=== PATIENT | female | born 1965 | race Two or more races ===

== ENCOUNTER 2021-09-09 08:24 | Outpatient (REF) | payer MEDICARE, MEDICAID, SELFPAY ==
--- NOTE | ~2021-09-09 | XR_ITS ---
EXAMINATION: XR HAND, RIGHT CLINICAL INFORMATION: Pain COMPARISON: None TECHNIQUE: PA, lateral, and oblique views of the right hand. FINDINGS: There is mild loss of PIP and DIP joint space slightly greater at the DIP joint 3rd digit with periarticular spurring. No bony erosive changes. No fracture or dislocation. The MCP joints and the intercarpal joints are normal. XR/XR hand RT min 3V IMPRESSION: Mild degenerative changes PIP and DIP joints slightly worse 3rd digit PIP joint. No visible acute fracture or dislocation.
== END 2021-09-09 08:25 | disposition home or self-care (01) ==
LOC: HO.HOSX 08:24
PROVIDERS: Visit Provider Orthopaedic Surgery
DX: M15.1 Heberden's nodes (with arthropathy) (principal)
CPT/HCPCS: 73130; 99202

== ENCOUNTER → 2021-10-28 14:14 | Outpatient (BNVA) | payer MEDICARE, MEDICAID, SELFPAY | PROVIDERS: PCP Family Medicine; Visit Provider Orthopaedic Surgery | DX: M15.1 Heberden's nodes (with arthropathy) (principal) | CPT/HCPCS: 99212 ==

== ENCOUNTER 2021-11-02 05:59 | Day surgery (SDC) | payer MEDICARE, MEDICAID, SELFPAY ==
[2021-11-02] VITALS (7 sets, daily range): BP systolic 127–156; BP diastolic 76–93; PULSE 64–100; RESP 15–18; TEMP 36.1–36.9; O2SAT 95–98; BMI 37.4
--- NOTE | ~2021-11-02 | FL_ITS ---
EXAMINATION: XR FLUOROSCOPY WITH IMAGES CLINICAL INFORMATION: Middle finger DIP joint arthrodesis. COMPARISON: 09/09/2021. TECHNIQUE: Fluoroscopy performed by Dr. Mackenzie Savage. Fluoroscopy time: 24.32 seconds. Cumulative Dose: 0.4666 mGy. DAP: 0.0282 Gy-cm2. Images: 4. FINDINGS: Images demonstrate screw placement across the third distal interphalangeal joint. FL/FL guidance in OR IMPRESSION: Intraoperative fluoroscopy for orthopedic procedure.
[2021-11-02] MEDS: Lactated Ringers 1,000 ML 100 ML IVCONT (06:42)
--- NOTE | 2021-11-02 07:22 | HO.ANESPROP2 ---
HPI - Anesthesia Eval Consult details Narrative: 56 F for right middle finger D IP? 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 (Acute) Past Medical History Medical History Benign neoplasm of head Migraine Rheumatoid arthritis Seasonal allergic reaction Functional capacity: uses cane/walker Family History Family history of problems with anesthesia: No Surgical History History of Problems with Anesthesia: No Social History Social History Patient Tobacco Use Status: Former Tobacco user Quit Date: 2015 Current occupational status: disabled Current occupation: left hand Meds Allergies Allergy/AdvReac Type Severity Reaction Status Date / Time divalproex sodium Allergy Rash Verified 11/02/21 07:34 [From Depakote] ketorolac [From Toradol] Allergy Rash Verified 11/02/21 07:34 Active Medications: Current Medications Lactated Ringer's (Lr) 1,000 mls @ 100 mls/hr IVCONT .Q10H LAUREN Last Admin: 11/02/21 06:42 Dose: 100 mls/hr Home Medications Medication Instructions Recorded Confirmed Last Taken Type albuterol sulfate 90 mcg/actuation 2 puff inhalation Q4-6H PRN 09/09/21 10/27/21 Unknown History aerosol inhaler (Ventolin HFA) Wheezing estradiol 1 mg tablet 1 mg PO DAILY 09/09/21 10/27/21 Unknown History fluticasone propionate 50 spray intranasal 09/09/21 Unknown History mcg/actuation nasal spray,suspension hydroxychloroquine 200 mg tablet 200 mg PO BID 09/09/21 10/27/21 Unknown History mirtazapine 15 mg tablet 15 mg PO BEDTIME 09/09/21 10/27/21 Unknown History omeprazole 40 mg capsule,delayed 40 mg PO BID 09/09/21 10/27/21 Unknown History release pregabalin 200 mg capsule 200 mg PO TID 09/09/21 10/27/21 Unknown History venlafaxine 75 mg capsule,extended 75 mg PO QAM 09/09/21 10/27/21 Unknown History release 24 hr oxycodone 5 mg tablet 1 tab PO Q6H PRN moderate pain 11/02/21 11/02/21 11/02/21 History Exam Exam Date and Time: November 02, 2021721 Height,Weight and Vital Signs: Height 5 ft 1 in Weight 89.811 kg Last Vital Signs Temp 97.2 F 11/02/21 06:23 Pulse 64 11/02/21 06:23 Resp 16 11/02/21 06:23 BP 156/76 H 11/02/21 06:23 Pulse Ox 97 11/02/21 06:23 O2 Del Method 11/02/21 06:23 Airway Mallampati Class: III TM Dist: >3cm Neck ROM: Full Loose/Missing/Broken Teeth: Yes (Chipped teeth ) Heart: S1,S2 Lungs: b/l breath sounds Assessment and Plan Assessment Anesthesia Assessment: Anesthesia Plan Discussed and Chart Reviewed Final Anesthetic Review Family History of Problems with Anesthesia: No History of Problems with Anesthesia: No NPO: Yes ASA Class: III Final Preanesthetic Review: Meds/Allgs Chart Reviewed, Consent Obtained/Reviewed and Anes Risks/Benef Reviewed Patient Risk: Intermediate Procedure Risk: Intermediate Anesthetic Plan Anesthetic Plan: GA Disposition: Standard PACU
--- NOTE | 2021-11-02 09:51 | MHC.SHP ---
Pre-Procedural Eval Section A Date of Service: 11/02/21 The patient is an INPATIENT: No Changes since office visit: No Cold of Flu in the past 2 weeks, No New Medical Problems, No Changes in Medication and No Patient answered all questions The History & Physical has been completed within 30 days and I have reviewed it.: Yes Section B Chief Complaint: osteoarthritis Allergies: Allergies Allergy/AdvReac Type Severity Reaction Status Date / Time divalproex sodium Allergy Rash Verified 11/02/21 07:34 [From Depakote] ketorolac [From Toradol] Allergy Rash Verified 11/02/21 07:34 Plan I have reviewed the history and physical and performed a pertinent physical examination on my patient. No changes have occurred unless specified.
--- NOTE | 2021-11-02 09:56 | P.OP_ITS ---
Operative Note Operative Note Date of Service: 11/02/21 Narrative: Operative Note Narrative: Preop diagnosis: Right middle finger D IP joint osteoarthritis Postop diagnosis: Same Procedure: right middle finger D IP joint arthrodesis Surgeon: Mackenzie Savage MD Anesthesia: General Anesthesia Findings: osteoarthritis Implants: AcuTrak 2 mini 26 mm headless compression screw Tourniquet time: 55 minutes EBL: 5.0 ml Specimen: none Drains: None Complications: None Disposition: Brought to the recovery room in stable condition Plan: Follow-up in 10-14 days for wound check, suture removal, radiographs and finger splinting. Encourage MCP and PIP joint range of motion no heavy activity with this finger for least 4 weeks or until bony healing Indications: The patient is 56 years old with right middle finger D IP joint osteoarthritis that has been unresponsive to non operative measures. The risks and benefits of operative treatment, including but not limited to risk of damage to blood vessels, nerves, tendons, infection, recurrence, persistent pain or numbness, incomplete resolution of preoperative symptoms, or need for further surgery were discussed with the patient and they wished to proceed with surgery. Procedure: Once consent was obtained patient was brought back to the operating suite and placed in the operating table in a supine position. Perioperative antibiotics and anesthesia was administered by the anesthesia team. A tourniquet was applied to the proximal aspect of the right upper extremity and the limb was prepped and draped in a standard surgical fashion. The limb was elevated exsanguinated with Esmarch bandage and the tourniquet inflated to 250 mm of mercury for a total tourniquet time of 55 minutes. The mini C-arm was used during the case to facilitate placement of our guidewire, arthrodesis alignment and position of our headless compression screw. An S shaped incision was made over the dorsal aspect of the right middle finger D IP joint. The incision was made through the skin to the subcutaneous tissues using a 15. Blade. I dissected down to the level of the extensor tendon and the extensor tendon was cut transversely using a 15. Blade directly over the D IP joint. This then revealed our joint. A rongeur was used to remove some of the periarticular osteophytes and also to remove any remaining articular cartilage from the D IP joint. Echo here at was also used to facilitate removal of articular cartilage. I then used a 0.035 K-wire to fenestrate the subchondral bone on both the proximal and distal joint surfaces to facilitate bony healing across our arthrodesis site. A small longitudinal incision was made directly over the tip of the finger. I dissected down to the tip of the distal phalanx using tenotomy scissors. The K-wire from the AcuTrak 2 mini head less compression screw set was then advanced retrograde through the tip of the distal phalanx proximally across the D IP joint and into the middle phalanx. Placement of this guidewire was visualized on orthogonal fluoroscopic images. Once satisfied with its placement the length of the needed screw was measured. I then used the long narrow cannulated Reamer over the placed guidewire to ream across the D IP joint to the appropriate depth. The short fat cannulated Reamer was then used to open up the cortex at the tip of the finger. A 26 mm AcuTrak 2 mini headless compression screw was then advanced retrograde over the guidewire across the D IP joint into the appropriate position. We achieved excellent compression at the arthrodesis site. The guidewire was removed and final radiographs were obtained. At this point the tourniquet was deflated and hemostasis obtained with a brief period of local pressure and bipolar electrocautery. The wound was copiously irrigated with normal saline. The skin edges were reapproximated with 5-0 nylon suture. A Digital block was performed using some 0.5% plain ropivacaine for postop pain control and a sterile dressing was applied. a volar splint extending from the fingertips of the middle ring and small fingers to the volar forearm was placed. The patient appears to have tolerated the procedure well and with no complications. All digits were well vascularized conclusion of the case.
== END 2021-11-02 11:10 | disposition home or self-care (01) ==
PROVIDERS: PCP Family Medicine; Visit Provider Orthopaedic Surgery
PROC: (CPT 26860; principal; 2021-11-02 07:30)
DX: M15.1 Heberden's nodes (with arthropathy) (principal)
CPT/HCPCS: 26860; C1713; J0131; J0171; J0690; J1100; J1170; J2250; J2370; J2405; J2795; J3010

== ENCOUNTER 2021-11-16 15:49 | Outpatient (REF) | payer MEDICARE, MEDICAID, SELFPAY ==
--- NOTE | ~2021-11-16 | XR_ITS ---
EXAMINATION: XR HAND, RIGHT CLINICAL INFORMATION: Pain COMPARISON: Hand radiographs 09/09/2021 TECHNIQUE: PA, lateral, and oblique views of the right hand. FINDINGS: Postsurgical changes of fusion of the third distal interphalangeal joint with a single surgical screw. There is new erosion of the tuft of the third distal phalanx at the superior margin of the screw. Similar mild degenerative changes of the remaining distal interphalangeal joints. No acute fracture or dislocation. Soft tissues are unremarkable. XR/XR hand RT min 3V IMPRESSION: Postsurgical changes of fusion of the third distal interphalangeal joint with a single surgical screw. There is new erosion of the tuft of the third distal phalanx at the superior margin of the screw. Similar mild degenerative changes of the remaining distal interphalangeal joints.
== END 2021-11-16 15:50 | disposition home or self-care (01) ==
LOC: HO.HOSX 15:49
PROVIDERS: Visit Provider Orthopaedic Surgery
DX: M79.641 Pain in right hand (principal)
CPT/HCPCS: 73130

== ENCOUNTER → 2021-11-17 09:35 | Outpatient (BNVA) | payer MEDICARE, MEDICAID, SELFPAY | PROVIDERS: PCP Family Medicine; Visit Provider Orthopaedic Surgery | DX: Z47.89 Encounter for other orthopedic aftercare (principal) | CPT/HCPCS: 99212 ==

== ENCOUNTER 2021-12-15 17:29 | Outpatient (REF) | payer MEDICARE, MEDICAID, SELFPAY | END 2021-12-15 17:30 | disposition home or self-care (01) | LOC: HO.HOSX 17:29 | PROVIDERS: Visit Provider Orthopaedic Surgery | DX: Z13.89 Encounter for screening for other disorder (principal) ==

== ENCOUNTER 2022-05-20 12:08 | Outpatient (REF) | payer MEDICARE, MEDICAID, SELFPAY ==
--- NOTE | ~2022-05-20 | XR_ITS ---
EXAMINATION: XR KNEE, RIGHT XR KNEE, LEFT CLINICAL INFORMATION: Pain. COMPARISON: None available. TECHNIQUE: AP standing view of both knees and lateral and sunrise view of the left knee. FINDINGS: LEFT KNEE: There is a 3 component knee replacement. The patella appears low. No fracture, dislocation or x-ray evidence of loosening. No definite joint effusion. Soft tissue swelling over the anterior knee. RIGHT KNEE: AP view of the right knee demonstrates mild arthritis at the medial femoral tibial joint. XR/XR knee standing BI IMPRESSION: Left knee replacement. Low position of the patellar component. Soft tissue swelling over the anterior knee.
--- NOTE | ~2022-05-20 | XR_ITS ---
EXAMINATION: XR KNEE, RIGHT XR KNEE, LEFT CLINICAL INFORMATION: Pain. COMPARISON: None available. TECHNIQUE: AP standing view of both knees and lateral and sunrise view of the left knee. FINDINGS: LEFT KNEE: There is a 3 component knee replacement. The patella appears low. No fracture, dislocation or x-ray evidence of loosening. No definite joint effusion. Soft tissue swelling over the anterior knee. RIGHT KNEE: AP view of the right knee demonstrates mild arthritis at the medial femoral tibial joint. XR/XR knee LT 2V IMPRESSION: Left knee replacement. Low position of the patellar component. Soft tissue swelling over the anterior knee.
== END 2022-05-20 12:09 | disposition home or self-care (01) ==
LOC: HO.HOSX 12:08
PROVIDERS: Visit Provider Physician Assistant
DX: M25.561 Pain in right knee (principal); Z96.652 Presence of left artificial knee joint
CPT/HCPCS: 73560; 73565; 99202